=== PATIENT | male | born 1950 | race Caucasian/White ===

== ENCOUNTER 2018-10-14 05:07 | Observation (INO) | payer BC ==
[2018-10-14] MEDS ORDERED: SEVOFLURANE 15 MIN (07:00)
[2018-10-14] MEDS ORDERED: GLYCOPYRROLATE 0.4 MG INJ ×3 (07:05→08:21)
[2018-10-14] MEDS ORDERED: LIDOCAINE 2% (SDV) 5 ML INJ (07:05)
[2018-10-14] MEDS ORDERED: ROPIVACAINE 0.5 % 30 ML VIAL ×2 (07:05→10:57)
[2018-10-14] MEDS ORDERED: PROPOFOL 20 ML (07:05)
[2018-10-14] MEDS ORDERED: NEOSTIGMINE 3 MG/3 ML SYRINGE ×2 (07:05→08:21)
[2018-10-14] MEDS ORDERED: ROCURONIUM 50 MG INJ ×2 (07:05→08:20)
[2018-10-14] MEDS ORDERED: SUCCINYLCHOLINE CHLORIDE 100 MG/5 ML SYG IV (07:05)
[2018-10-14 07:32] LABS: POTASSIUM 4.2 mmol/L (3.5-5.1)
[2018-10-14] MEDS ORDERED: CEFAZOLIN 1 GM INJ ×2 (07:40→10:19)
[2018-10-14] MEDS ORDERED: POVIDONE IODINE 10% 28.4 GM OINT (10:57)
[2018-10-14] MEDS ORDERED: POLYMYXIN/BACITRACIN 1L IRRIG (10:57)
[2018-10-14] MEDS ORDERED: HYDROmorphONE 1 MG/5 ML IV SYRINGE IV ×3 (11:00)
[2018-10-14] MEDS ORDERED: LABETALOL HCL 20MG INJ IV (11:00)
[2018-10-14] MEDS ORDERED: ONDANSETRON 4 MG INJ IV ×2 (11:00→13:00)
[2018-10-14] MEDS ORDERED: METOCLOPRAMIDE 10 MG INJ IV (11:00)
[2018-10-14] MEDS ORDERED: MIDAZOLAM 1 MG/ML 2 ML INJ IV (11:00)
[2018-10-14] MEDS ORDERED: MEPERIDINE 25 MG INJ IV (11:00)
[2018-10-14] MEDS ORDERED: EPHEDrine SULFATE 50 MG/5 ML SYG IV (11:00)
[2018-10-14] MEDS ORDERED: OXYCODONE/ACETAMINOPHEN (5/325) TAB PO ×2 (11:00)
[2018-10-14] MEDS ORDERED: DIPHENHYDRAMINE 50 MG INJ IV (11:00)
[2018-10-14] MEDS ORDERED: hydrALAzine 20 MG INJ IV (11:00)
[2018-10-14] MEDS ORDERED: FENTAnyl 50 MCG/ML VIAL IV ×3 (11:00)
[2018-10-14] MEDS: SOD CHLORIDE 0.9% 1,000 ML IV ×3 (11:49→20:31)
[2018-10-14] MEDS ORDERED: BISACODYL 10 MG SUPP PR ×2 (12:00→13:00)
[2018-10-14] MEDS ORDERED: morphine 10 MG INJ IV (13:00)
[2018-10-14] MEDS ORDERED: DIPHENHYDRAMINE 25 MG CAP PO (13:00)
[2018-10-14] MEDS: HYDROmorphONE 0.2 MG/ML PCA IV (15:02)
[2018-10-14] MEDS ORDERED: PATIENT'S OWN MEDICATION PO (16:00)
[2018-10-14] MEDS: CEFAZOLIN 1 GM/50 ML (PMX) 50 ML IVPB (18:17)
[2018-10-14] MEDS: APRISO PO (18:28)
[2018-10-14] MEDS: ATORVASTATIN 20 MG TAB PO (20:24)
[2018-10-14] MEDS: SENNA/DOCUSATE NA (8.6MG/50MG) TAB PO ×2 (20:25→20:29)
[2018-10-14] MEDS: TAMSULOSIN (SR) 0.4 MG CAP PO (20:25)
[2018-10-15] MEDS: CEFAZOLIN 1 GM/50 ML (PMX) 50 ML IVPB ×3 (01:02→16:05)
[2018-10-15] MEDS: SOD CHLORIDE 0.9% 1,000 ML IV (01:02)
[2018-10-15] MEDS: PANTOPRAZOLE (EC) 40 MG TAB PO (05:26)
[2018-10-15] MEDS: HYDROmorphONE 0.2 MG/ML PCA IV (08:00)
[2018-10-15] MEDS: DUTASTERIDE 0.5 MG CAP PO (10:02)
[2018-10-15] MEDS: SENNA/DOCUSATE NA (8.6MG/50MG) TAB PO (10:03)
[2018-10-15] MEDS: APRISO PO (10:04)
[2018-10-15] MEDS: TAMSULOSIN (SR) 0.4 MG CAP PO (10:04)
[2018-10-15] MEDS: OXYCODONE/ACETAMINOPHEN (5/325) TAB PO ×2 (10:05→13:48)
[2018-10-15] MEDS: RIVAROXABAN 10 MG TABLET PO (16:57)
[2018-10-16] MEDS ORDERED: MAGNESIUM HYDROXIDE 30ML CUP PO ×2 (21:00)
== END 2018-10-15 17:30 | disposition home or self-care (01) ==
LOC: SDS 05:07 → REC 11:50 → MS1 12:46
PROVIDERS: Orthopaedic Surgery
DX: M19.071 Primary osteoarthritis, right ankle and foot (principal); M21.171 Varus deformity, not elsewhere classified, right ankle; M25.771 Osteophyte, right ankle; M24.071 Loose body in right ankle; M65.9 Synovitis and tenosynovitis, unspecified
CPT/HCPCS: 29898; 73610-RT; 84132; 97161; 97530